=== PATIENT | female | born 1970 ===

== ENCOUNTER 2016-08-09 10:45 | Inpatient (IN) ==
[~2016-08-09 10:45] MED LIST: ONDANSETRON 4 MG/2 ML VIAL ONE; PHENYLEPHRINE 1 MG/10 ML SYRINGE IV ONE; PROPOFOL 200 MG/20 ML VIAL IV ONE; SUCCINYLCHOLINE 200 MG/10 ML VIAL ONE
[2016-08-09] MEDS ORDERED: RHO(D) IMMUNE GLOBULIN 300 MCG SYRINGE IM ONE (11:34)
[2016-08-09] MEDS ORDERED: MAGNESIUM HYDROXIDE SUSP 30 ML UDCUP PO PRN (11:34)
[2016-08-09] MEDS ORDERED: ONDANSETRON 4 MG/2 ML VIAL IV PRN (11:34)
[2016-08-09] MEDS ORDERED: ACETAMINOPHEN 325 MG TABLET PO PRN (11:34)
[2016-08-09] MEDS ORDERED: IBUPROFEN 800 MG TABLET PO PRN (11:34)
[2016-08-09] MEDS ORDERED: SIMETHICONE CHEW 80 MG TABLET PO PRN (11:34)
[2016-08-09] MEDS ORDERED: OXYTOCIN/LR 20 UNIT/1,000 ML BAG IV ONE (11:34)
--- NOTE | 2016-08-09 11:36 | Operative Note ---
Date of procedure: 08/09/16 Procedure Preformed: Following informed consent patient taken to the operating room where spinal anesthesia was administered without difficulty. She is prepped and draped in usual fashion placed in dorsal supine position with a leftward tilt. A Pfannenstiel skin incision made with scalpel and carried through to the underlying layer fascia with Bovie. The fascia with incision was excised midlines to lateral with Brush scissors. The inferior and superior aspects of the fascial incision were grasped with Pecan Gap clamps, elevated and the rectus muscles dissected off bluntly. The rectus muscles were then midline and the peritoneum identified and entered with Metzenbaum scissors. The cyst extends purely inferiorly with good visualization of the bladder. Bladder blade was then reinserted and the uterus incised in transverse fashion with scalpel. The baby was delivered in the footling breech position. Anterior and posterior shoulders were delivered following by the after coming head. The baby was found to be a limp with no evidence of life and was immediately transferred to the hands of the special machine operator and staff. The nose mouth bulb suctioned. Cord blood was sent. The placenta was then removed manually and the uterus cleared all clots and debris. The uterine incision with #1 Vicryl in a running locked fashion. A second layer same suture was used to obtain hemostasis. The gutters and cleared of all clots and debris and once again hemostasis will be satisfactory. Therefore all instruments from the abdomen. The fascia was repaired with [0] Vicryl in a running fashion. Skin pleasant and soft joy. At the end of the procedure all sponge lap needle counts correct 2. Mother in stable condition Surgeon / Physician: Juan Wilkins Post-op diagnosis: same Findings: Stillborn male in the footling breech presentation Specimens: other (Placenta) Estimated blood loss: other (350 mL) Condition: stable Anesthesia: GETA Disposition: floor
[2016-08-09] MEDS ORDERED: SEVOFLURANE 1 UNIT/15 MINUTE INH ONE (11:39)
[2016-08-09] MEDS ORDERED: MIDAZOLAM 2 MG/2 ML VIAL ONE (11:40)
[2016-08-09] MEDS ORDERED: fentaNYL 100 MCG/2 ML VIAL ONE (11:40)
[2016-08-09 11:48] LABS: Cord Arterial Blood HCO3 7.1 MMOL/L
[2016-08-09 11:50] LABS: Apearance,Urine CLEAR (Clear); Bacteria,Urine Few /HPF (Few); Bilirubin,Urine Negative (Negative); Blood, Urine Negative (Negative); Glucose,Urine (UA) Negative (Negative); Ketones,Urine Negative (Negative); Mucus,Urine Occasional /LPF (Occasional); Nitrite,Urine Positive (Negative); Protein,Urine Negative; RBC,Urine 2 /HPF (0-4); Urine Color Yellow (Yellow); Urine Specific Gravity 1.005 (1.001-1.035); WBC,Urine 21 /HPF (0-6)
[2016-08-09] MEDS ORDERED: KETOROLAC 60 MG/2 ML VIAL IM ONE (11:50)
--- NOTE | 2016-08-09 11:50 | Neonatology Progress Note ---
Neonatology Note - Patient History Admission History: RESCUITATION NOTE Baby Boy [facility] Date 08-09-16 Time 1120hrs Called to stat csection Dr Wilkins, 31 weeks full dilated breech delivery. Upon delivery of infant, noticed he was meconium stained, and appeared to be older than 31 weeks. No movement, no resp effort, color pale. immediately intubated with a 3.0 ETT taped @ 7.5cm. PPV with 100%, no HR noted. Started CPR, 2 doses of epi given by 5 minutes of age, No HR, continued CPR UVC placed and another dose of Epi given, with no response, after 10 minutes of CPR and 3 doses of epi, no HR, no tone, no movement, resuscitative efforts were stopped. Apgars at 1, 5 and 10 min were 0,0 & 0. Deshawn Rivera DO
[2016-08-09 11:52] LABS: Cord Venous Blood HCO3 12.8 MMOL/L; Cord Venous Blood PCO2 63.4 MMHG; Cord Venous Blood PO2 26.8
[2016-08-09] MEDS ORDERED: HYDROmorphone PCA 30 MG/30 ML SYRINGE IV SCH (12:00)
[2016-08-09] MEDS ORDERED: LACTATED RINGERS 1,000 ML IV SCH (12:00)
[2016-08-09 12:05] LABS: Barbiturates Screen,Urine Negative (Negative); Benzodiazepines Screen,Urine Negative (Negative); Cannabinoid Screen,Urine Negative (Negative); Opiate Screen,Urine Negative (Negative); Phencyclidine Screen,Urine Negative (Negative)
[2016-08-09] MEDS: LABETALOL 200 MG TABLET PO SCH ×2 (17:19→21:30)
[2016-08-09 18:00] LABS: Basophils % 0.2 % (0.0-0.8); Eosinophils % 0.1 % (0.00-10.9); Hematocrit 33.1 VOL% (35.7-47.0); Immature Granulocytes % 0.4 %; Immature Granulocytes Absolute 0.06 #; Lymphocytes # 1.3 10*3/uL (1.4-4.0); Lymphocytes % 8.8 % (21.3-54.2); Mean Corpuscular HGB Conc 30.2 GM/DL (32-36); Mean Corpuscular Hemoglobin 21 PG (27-34); Mean Corpuscular Volume 69.1 FL (87-102); Monocytes # 0.6 10*3/uL (0.11-0.8); Monocytes % 4.2 % (1.7-12.7); Neutrophils # 12.7 10*3/uL (1.4-7.4); Neutrophils % 86.3 % (38.7-73.9); Platelet Count 217 T/CUMM (130-400); Red Blood Count 4.79 MC/CUMM (3.8-5.5); Red Cell Distribution Width 17.3 % (9.3-17.3); White Blood Count 14.7 T/CUMM (4-12)
[2016-08-09 18:16] LABS: Bilirubin,Total 0.9 MG/DL (0.2-1.0); Calcium 8.1 MG/DL (8.5-10.1); Osmolality,Calculated 279.3 MOS/KG (273-304); Potassium 4.7 MMOL/L (3.5-5.1); Total Protein 5.8 G/DL (6.4-8.3); Uric Acid 7.4 MG/DL (2.6-6.0)
[2016-08-09 18:20] LABS: Hypochromasia Slight
[2016-08-09 18:21] LABS: Burr Cells Slight; Platelet Estimate Adequate
[2016-08-09 18:25] LABS: HIV Antigen/Antibody Result Nonreactive (Nonreactive); Hepatitis B Surface Ab Result Negative
[2016-08-09 19:25] LABS: INR 0.9; PT Patient Result 9.4 SECS; Partial Thromboplastin Time 31.3 SECS (0-40)
[2016-08-09] MEDS: DOCUSATE SODIUM 100 MG CAPSULE PO SCH (20:24)
[2016-08-10 06:47] LABS: Basophils % 0.3 % (0.0-0.8); Eosinophils # 0.1 10*3/uL (0.0-0.87); Eosinophils % 0.4 % (0.00-10.9); Hematocrit 24.5 VOL% (35.7-47.0); Hemoglobin 7.5 GM/DL (12.0-16.0); Immature Granulocytes % 0.4 %; Immature Granulocytes Absolute 0.05 #; Lymphocytes # 1.5 10*3/uL (1.4-4.0); Lymphocytes % 10.9 % (21.3-54.2); Mean Corpuscular HGB Conc 30.6 GM/DL (32-36); Mean Corpuscular Hemoglobin 21 PG (27-34); Mean Corpuscular Volume 68.6 FL (87-102); Mean Platelet Volume 11.6 FL (9.6-12.0); Monocytes # 0.6 10*3/uL (0.11-0.8); Monocytes % 4.6 % (1.7-12.7); Neutrophils # 11.3 10*3/uL (1.4-7.4); Neutrophils % 83.4 % (38.7-73.9); Platelet Count 191 T/CUMM (130-400); Red Blood Count 3.57 MC/CUMM (3.8-5.5); Red Cell Distribution Width 17.2 % (9.3-17.3); White Blood Count 13.6 T/CUMM (4-12)
[2016-08-10 07:27] LABS: Band Neutrophils 9 % (0-10); Hypochromasia 3+; Lymphocytes 4 % (20-55); Macrocytosis 1+; Segmented Neutrophils 83 % (50-85); Total Cells Counted 100
[2016-08-10 07:28] LABS: Acanthocytes 1+; Platelet Estimate Normal; Polychromasia Slight
[2016-08-10] MEDS: MULTIVITAMIN (PRENATAL) TABLET PO SCH (08:57)
[2016-08-10] MEDS: FERROUS SULFATE 325 MG TABLET PO SCH ×2 (08:57→21:30)
[2016-08-10] MEDS: DOCUSATE SODIUM 100 MG CAPSULE PO SCH ×2 (08:57→21:30)
[2016-08-10] MEDS: LABETALOL 200 MG TABLET PO SCH ×2 (08:58→21:30)
--- NOTE | 2016-08-10 12:16 | Anesthesia Post-Op ---
Anesthesia Post OP - Post Ansesthetic Evaluation Patient seen in post op: Yes Resp: within normal limits CV: within normal limits Mental: within normal limits Temp: within normal limits [id number]: within normal limits Nausea and Vomiting: within normal limits Pain: within normal limits
--- NOTE | 2016-08-10 12:17 | OB/GYN Progress Note ---
Assessment and Plan (1) Delivered by section Status: Acute Assessment and plan: Routine and postoperative care. We will continue p.o. labetalol for blood pressure control. 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 - Constitutional Vitals: Vital Signs Temp Pulse Pulse Resp BP BP Pulse Ox 08/10/16 07:04 98.4 F 86 16 109/52 08/10/16 06:00 18 08/10/16 04:10 18 08/10/16 04:00 97.8 F 86 18 124/69 08/10/16 01:30 18 08/10/16 00:00 98.0 F 89 20 122/67 08/09/16 22:00 18 08/09/16 20:16 88 20 08/09/16 20:00 97.2 F L 88 20 154/92 08/09/16 18:15 87 20 151/89 08/09/16 17:15 95 H 20 152/103 08/09/16 16:15 97.6 F 98 H 20 167/95 08/09/16 12:00 97.1 F L 102 H 112 H 24 168/94 149/78 98 08/09/16 11:41 97 F L 107 H 24 128/56 Pulse Ox 08/10/16 07:04 97 08/10/16 06:00 08/10/16 04:10 08/10/16 04:00 99 08/10/16 01:30 08/10/16 00:00 98 08/09/16 22:00 08/09/16 20:16 08/09/16 20:00 98 08/09/16 18:15 98 08/09/16 17:15 99 08/09/16 16:15 98 08/09/16 12:00 08/09/16 11:41 99 General appearance: no acute distress - Gyencological / Post Surgical Post Surgical Exam Extremities TAB CARD PRESS OPERATOR: Present: normal Abdomen obstetrics progress note: Present: normal appearance, soft Incision OB: Present: normal, dry, intact - Head Head exam: Present: normocephalic - Respiratory Respiratory exam: Present: clear to auscultation bilaterally - Cardiovascular Cardiovascular exam: Present: regular rate and rhythm - GI/Abdominal GI/Abdominal exam: Present: normal bowel sounds, soft - Extremities Exam Extremities exam: Present: normal inspection Results - Labs CBC & BMP: 08/10/16 04:00 08/09/16 17:51
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
--- NOTE | 2016-08-10 12:18 | Discharge Summary ---
Hospital Course - Hospital Course Hospital Course: This is a 46-year-old female who presented in active labor at approximately 34- 35 weeks with no history of care as a transfer from [facility]. Patient was transferred due to active labor and footling breech presentation. Upon admission she underwent an emergent section that resulted in a stillborn male . Hospital course was complicated by elevated blood pressures that were controlled with p.o. labetalol. Patient's urine drug screen was also found to be positive for methamphetamines. Diagnosis - Discharge Diagnosis (1) Delivered by section Status: Acute (2) Delivery outcome of stillbirth Status: Acute (3) Footling breech presentation Status: Acute (4) Drug abuse Status: Acute (5) Drug abuse during Status: Acute Specialty Discharge - Follow Up or Referrals Follow up with: Juan Wilkins MD [Physician] - 1 Week (Call the office and make a 1 week follow up appointment) Discharge Plan - Discharge Data Disposition: Disch To Home/Self Care Condition at Discharge: Stable Discharge Diet: advance to your usual diet Activity: no lifting (Pelvic rest) Hygiene: may shower Weight Bearing at Discharge: weight bear as tolerated Driving: not until seen by doctor Contact your physician if you experience:: fever over 101, Difficulty voiding, Redness or swelling, Nausea/Vomiting, Shortness of breath, Bleeding, pain uncontrolled by pain medications - Discharge Medications New Labetalol Tab [Trandate Tab] 200 mg PO BID #60 tablet HYDROcodone/ACETAMIN 5-325 [Blomkest 5-325] 2 tablet PO Q6H PRN #40 tablet PRN Reason: Pain Severe (8-10) - Follow Up or Referral Follow Up: Juan Wilkins MD [Physician] - 1 Week (Call the office and make a 1 week follow up appointment) - Forms/Instructions Instructions: Sulfamethoxazole/Trimethoprim (By mouth), Labetalol (By mouth), Hydrocodone/Acetaminophen (By mouth), Ibuprofen (By mouth), Section (DC ), Surgical Site Infections (GEN), Bleeding (DC) Exam - Constitutional Vitals: Period Temp Pulse Resp BP Sys/Madison Pulse Ox Last 24 Hr 97 F-98.4 F 86-112 16-24 109-168/52-103 97-99 General appearance: no acute distress - Head Head exam: Present: normocephalic - ENT ENT exam: Present: normal exam - Neck Neck exam: Present: normal inspection - Respiratory Respiratory exam: Present: clear to auscultation bilaterally - Cardiovascular Cardiovascular exam: Present: regular rate and rhythm - GI/Abdominal GI/Abdominal exam: Present: normal bowel sounds, soft, other (Incision clean dry and intact) - Extremities Exam Extremities exam: Present: normal inspection - Back Exam Back exam: Present: normal inspection - Neurological Exam Neurological exam: Present: alert, oriented X3 - Psychiatric Psychiatric exam: Present: normal affect, normal mood - Skin Skin exam: Present: normal color, warm Discharge Results Procedures and tests throughout hospitalization: Pending Orders 08/09/16 Urine Culture Routine 08/09/16 16:55 Antibody Identification Stat Red Blood Cells Leuko Red Stat Type and Screen Stat Labs on day of discharge: Labs from last 24 hours 08/10/16 08/09/16 08/09/16 04:00 Unknown 18:37 WBC 13.6 H RBC 3.57 L D Hgb 7.5 L D Hct 24.5 L MCV 68.6 L MCH 21 L MCHC 30.6 L RDW 17.2 Plt Count 191 MPV 11.6 Neut % (Auto) 83.4 H Lymph % (Auto) 10.9 L Bowie % (Auto) 4.6 Eos % (Auto) 0.4 Baso % (Auto) 0.3 Neut # (Auto) 11.3 H Lymph # (Auto) 1.5 Bowie # (Auto) 0.6 Eos # (Auto) 0.1 Baso # (Auto) 0.0 Total Counted 100 Immature Gran % 0.4 Nucleated RBC % 0.0 Immature Gran # 0.05 Segmented Neutrophils 83 Band Neutrophils 9 Lymphocytes 4 L Monocytes 4 Nucleated RBCs # 0.00 Platelet Estimate Normal Polychromasia Slight Hypochromasia 3+ Anisocytosis Macrocytosis 1+ Tal Cells Acanthocytes (Spur) 1+ INR 0.9 PT Patient/Control Mix 9.4 Fibrinogen 435 H Circ Anticoag PTT 31.3 Cord ABG pH Cord ABG pCO2 Cord ABG pO2 Cord ABG HCO3 Cord ABG Total CO2 Cord ABG Base Excess Cord VBG pH Cord VBG pCO2 Cord VBG pO2 Cord VBG HCO3 Cord VBG Total CO2 Cord VBG Base Excess Sodium Potassium Chloride Carbon Dioxide Anion Gap BUN Creatinine GFR Calculation BUN/Creatinine Ratio Glucose Calculated Osmolality Uric Acid Calcium Total Bilirubin AST ALT Alkaline Phosphatase Total Protein Albumin Globulin Albumin/Globulin Ratio Urine Color Urine Appearance Urine pH Ur Specific Leming Urine Protein Urine Glucose (UA) Urine Ketones Urine Blood Urine Nitrate Urine Bilirubin Urine Urobilinogen Urine Leukocytes Urine RBC Urine WBC Urine Bacteria Urine Mucus Ur Culture Indicated? Urine Opiates Screen Ur Barbiturates Screen Ur Phencyclidine Scrn U Amphetamine/Methamph U Benzodiazepines Scrn U Cocaine Metab Screen U Cannabinoids Screen Treponema pallidum IgG Hep Bs Antibody HIV 1&2 Antigen & Ab Blood Type O POSITIVE Antibody Screen Antibody Identification Crossmatch 08/09/16 08/09/16 08/09/16 17:51 17:51 16:55 WBC RBC Hgb Hct MCV MCH MCHC RDW Plt Count MPV Neut % (Auto) Lymph % (Auto) Bowie % (Auto) Eos % (Auto) Baso % (Auto) Neut # (Auto) Lymph # (Auto) Bowie # (Auto) Eos # (Auto) Baso # (Auto) Total Counted Immature Gran % Nucleated RBC % Immature Gran # Segmented Neutrophils Band Neutrophils Lymphocytes Monocytes Nucleated RBCs # Platelet Estimate Polychromasia Hypochromasia Anisocytosis Macrocytosis [place] Cells Acanthocytes (Spur) INR PT Patient/Control Mix Fibrinogen Circ Anticoag PTT Cord ABG pH Cord ABG pCO2 Cord ABG pO2 Cord ABG HCO3 Cord ABG Total CO2 Cord ABG Base Excess Cord VBG pH Cord VBG pCO2 Cord VBG pO2 Cord VBG HCO3 Cord VBG Total CO2 Cord VBG Base Excess Sodium 141 Potassium 4.7 Chloride 109 H Carbon Dioxide 22 Anion Gap 14.7 BUN 10 Creatinine 0.80 GFR Calculation 97 BUN/Creatinine Ratio 12.00 Glucose 107 H Calculated Osmolality 279.3 Uric Acid 7.4 H Calcium 8.1 L Total Bilirubin 0.90 AST 23 ALT 15 Alkaline Phosphatase 553 H Total Protein 5.8 L Albumin 2.0 L Globulin 3.8 H Albumin/Globulin Ratio 0.5 L Urine Color Urine Appearance Urine pH Ur Specific Lem[place] Urine Protein Urine Glucose (UA) Urine Ketones Urine Blood Urine Nitrate Urine Bilirubin Urine Urobilinogen Urine Leukocytes Urine RBC Urine WBC Urine Bacteria Urine Mucus Ur Culture Indicated? Urine Opiates Screen Ur Barbiturates Screen Ur Phencyclidine Scrn U Amphetamine/Methamph U Benzodiazepines Scrn U Cocaine Metab Screen U Cannabinoids Screen Treponema pallidum IgG Nonreactive Hep Bs Antibody Negative HIV 1&2 Antigen & Ab Nonreactive Blood Type Antibody Screen Antibody Identification Crossmatch 08/09/16 08/09/16 08/09/16 16:55 16:40 10:57 WBC 14.7 H RBC 4.79 Hgb 10.0 L Hct 33.1 L MCV 69.1 L MCH 21 L MCHC 30.2 L RDW 17.3 Plt Count 217 MPV Neut % (Auto) 86.3 H Lymph % (Auto) 8.8 L Bowie % (Auto) 4.2 Eos % (Auto) 0.1 Baso % (Auto) 0.2 Neut # (Auto) 12.7 H Lymph # (Auto) 1.3 L Bowie # (Auto) 0.6 Eos # (Auto) 0.0 Baso # (Auto) 0.0 Total Counted Immature Gran % 0.4 Nucleated RBC % 0.0 Immature Gran # 0.06 Segmented Neutrophils Band Neutrophils Lymphocytes Monocytes Nucleated RBCs # 0.00 Platelet Estimate Adequate Polychromasia Hypochromasia Slight Anisocytosis Macrocytosis [place] Cells Slight Acanthocytes (Spur) INR PT Patient/Control Mix Fibrinogen Circ Anticoag PTT Cord ABG pH Cord ABG pCO2 Cord ABG pO2 Cord ABG HCO3 Cord ABG Total CO2 Cord ABG Base Excess Cord VBG pH 7.037 Cord VBG pCO2 63.4 Cord VBG pO2 26.8 Cord VBG HCO3 12.8 Cord VBG Total CO2 16.8 Cord VBG Base Excess -14.3 Sodium Potassium Chloride Carbon Dioxide Anion Gap BUN Creatinine GFR Calculation BUN/Creatinine Ratio Glucose Calculated Osmolality Uric Acid Calcium Total Bilirubin AST ALT Alkaline Phosphatase Total Protein Albumin Globulin Albumin/Globulin Ratio Urine Color Urine Appearance Urine pH Ur Specific Lem[place] Urine Protein Urine Glucose (UA) Urine Ketones Urine Blood Urine Nitrate Urine Bilirubin Urine Urobilinogen Urine Leukocytes Urine RBC Urine WBC Urine Bacteria Urine Mucus Ur Culture Indicated? Urine Opiates Screen Ur Barbiturates Screen Ur Phencyclidine Scrn U Amphetamine/Methamph U Benzodiazepines Scrn U Cocaine Metab Screen U Cannabinoids Screen Treponema pallidum IgG Hep Bs Antibody HIV 1&2 Antigen & Ab Blood Type O POSITIVE Antibody Screen Positive Antibody Identification Anti-K Crossmatch See Detail 08/09/16 08/09/16 08/09/16 10:57 10:55 10:55 WBC RBC Hgb Hct MCV MCH MCHC RDW Plt Count MPV Neut % (Auto) Lymph % (Auto) Bowie % (Auto) Eos % (Auto) Baso % (Auto) Neut # (Auto) Lymph # (Auto) Bowie # (Auto) Eos # (Auto) Baso # (Auto) Total Counted Immature Gran % Nucleated RBC % Immature Gran # Segmented Neutrophils Band Neutrophils Lymphocytes Monocytes Nucleated RBCs # Platelet Estimate Polychromasia Hypochromasia Anisocytosis Macrocytosis [place] Cells Acanthocytes (Spur) INR PT Patient/Control Mix Fibrinogen Circ Anticoag PTT Cord ABG pH 6.721 L Cord ABG pCO2 96.9 Cord ABG pO2 11.6 Cord ABG HCO3 7.1 Cord ABG Total CO2 14.4 Cord ABG Base Excess -22.4 Cord VBG pH Cord VBG pCO2 Cord VBG pO2 Cord VBG HCO3 Cord VBG Total CO2 Cord VBG Base Excess Sodium Potassium Chloride Carbon Dioxide Anion Gap BUN Creatinine GFR Calculation BUN/Creatinine Ratio Glucose Calculated Osmolality Uric Acid Calcium Total Bilirubin AST ALT Alkaline Phosphatase Total Protein Albumin Globulin Albumin/Globulin Ratio Urine Color Yellow Urine Appearance Clear Urine pH 5.0 Ur Specific [place] 1.005 Urine Protein Negative Urine Glucose (UA) Negative Urine Ketones Negative Urine Blood Negative Urine Nitrate Positive H Urine Bilirubin Negative Urine Urobilinogen 2.0 H Urine Leukocytes Small H Urine RBC 2 Urine WBC 21 Urine Bacteria Few Urine Mucus Occasional Ur Culture Indicated? Results to follow Urine Opiates Screen Negative Ur Barbiturates Screen Negative Ur Phencyclidine Scrn Negative U Amphetamine/Methamph Positive H U Benzodiazepines Scrn Negative U Cocaine Metab Screen Negative U Cannabinoids Screen Negative Treponema pallidum IgG Hep Bs Antibody HIV 1&2 Antigen & Ab Blood Type Antibody Screen Antibody Identification Crossmatch DS: Provider Date of admission: 08/09/16 10:45 Primary care physician: Hui Oneil MD Attending physician on admission: Juan Wilkins MD Consults: 08/09/16 11:34 Consult to Chief Procurement Officer [CONS] Routine Consult Chief Procurement Officer: Breast Feeding Discharging clinician: Juan Wilkins MD
[2016-08-11] MEDS: DOCUSATE SODIUM 100 MG CAPSULE PO SCH (10:00)
[2016-08-11] MEDS: FERROUS SULFATE 325 MG TABLET PO SCH (10:00)
[2016-08-11] MEDS: MULTIVITAMIN (PRENATAL) TABLET PO SCH (10:00)
[2016-08-11] MEDS: LABETALOL 200 MG TABLET PO SCH (10:00)
[2016-08-11 11:30] VITALS: BP 123/75
--- NOTE | 2016-08-11 12:16 | Pathology Report from [facility] ---
[facility] [place] ACCESSION # : [id number] PATIENT NAME : Sydney Mcnulty ORDERING DR : KIERRA COMER MD CLINICAL HX: delivery, - No care - Elevated blood pressure POST-OP DX: Same SPECIMEN INFO: Placenta GROSS DESCRIPTION: Received fresh labeled SYDNEY MCNULTY & PLACENTA is a 725 gm bilobed placenta measuring 25.1 x 19.6 x 3 cm. The membranes are translucent coronel victor. The umbilical cord is centrally inserted, contains three vessels and is 20.6 cm. The surface is blue coronel pink. The maternal surface is hemorrhagic with moderately disrupted cotyledons, scattered areas of fibrin. No gross abnormalities are seen on sectioning. Sections submitted A- membranes and cord, B- and maternal surfaces. DIAGNOSIS FOR SYDNEY MCNULTY: PLACENTA: Trivascular umbilical cord. Acute diffuse chorioamnionitis. Third trimester placenta with small placental infarction, dystrophic calcification and increased syncytial clumping. COLLECTED DATE: 08/10/2016 [facility] REPORT DATE: 08/11/2016 ELECTRONICALLY SIGNED BY: Harlan Ayala III, M.D. 08/11/2016 - 10:22:09 MORTEZA
--- NOTE | 2016-08-11 13:35 | OB/GYN Progress Note ---
Assessment and Plan (1) Anemia Status: Acute Assessment and plan: 1. 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 seen by bedside. Pt. denies any complaints. no fever or chills. no chest pain or shortness of breath. No palpitations or dizziness. Denies any headaches or blurred vision. Pt. ambulating well and passing gas. Pt. mood is appropriate. Pt. 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 - Constitutional Vitals: Vital Signs Temp Pulse Resp BP Pulse Ox 08/11/16 11:29 97.4 F L 80 20 123/75 98 08/11/16 07:20 97.9 F 78 16 128/62 97 08/11/16 05:55 18 08/11/16 04:00 98.2 F 81 18 138/70 99 08/10/16 23:32 97.8 F 89 18 145/78 99 08/10/16 22:00 20 08/10/16 20:14 92 H 20 08/10/16 19:45 98.1 F 92 H 20 138/73 99 08/10/16 16:00 97.1 F L 88 20 113/75 97 General appearance: no acute distress - Gyencological / Post Surgical Post Surgical Exam Lungs: bilateral: normal Chest: Normal S1, Normal S2 - Respiratory Respiratory exam: Present: clear to auscultation bilaterally - Cardiovascular Cardiovascular exam: Present: regular rate and rhythm - GI/Abdominal GI/Abdominal exam: Present: normal bowel sounds, other (skin incision :clean/dry /intact) - Extremities Exam Extremities exam: Present: normal inspection - Psychiatric Psychiatric exam: Present: normal affect, normal mood Results - Labs CBC & BMP: 08/10/16 04:00 08/09/16 17:51
[2016-08-11 13:43] LABS: Basophils % 0.2 % (0.0-0.8); Eosinophils # 0.1 10*3/uL (0.0-0.87); Eosinophils % 0.7 % (0.00-10.9); Hematocrit 25.8 VOL% (35.7-47.0); Hemoglobin 7.9 GM/DL (12.0-16.0); Immature Granulocytes % 0.7 %; Immature Granulocytes Absolute 0.09 #; Lymphocytes # 1.5 10*3/uL (1.4-4.0); Mean Corpuscular HGB Conc 30.6 GM/DL (32-36); Mean Corpuscular Hemoglobin 21 PG (27-34); Mean Corpuscular Volume 68.6 FL (87-102); Mean Platelet Volume 11.9 FL (9.6-12.0); Monocytes # 0.6 10*3/uL (0.11-0.8); Monocytes % 4.2 % (1.7-12.7); Neutrophils # 11.4 10*3/uL (1.4-7.4); Neutrophils % 83.2 % (38.7-73.9); Platelet Count 225 T/CUMM (130-400); Red Blood Count 3.76 MC/CUMM (3.8-5.5); Red Cell Distribution Width 17.2 % (9.3-17.3); White Blood Count 13.7 T/CUMM (4-12)
[2016-08-11 16:08] LABS: Anisocytosis 1+
[2016-08-11 16:09] LABS: Microcytosis 1+; Platelet Estimate Normal
== END 2016-08-11 14:55 | disposition home or self-care (01) | DRG 765 ==
LOC: EDBD 10:45 → N.LD 11:07 → N.OB 16:02
PROVIDERS: ADMIT Obstetrics & Gynecology; ATTEND Obstetrics & Gynecology
PROC: LDCSECT (ICD-10-PCS; 2016-08-09 10:45)